=== PATIENT | female | born 1975 | race Asian ===

== ENCOUNTER → 2021-12-14 | Outpatient (CLI) | payer OTHER ==
[2021-12-15 04:06] LABS: RUBEOLA (MEASLES) IGG >300.0 AU/mL (Immune >16.4)
[2021-12-15 10:07] LABS: RUBELLA AB IGG-REFLAB 0.93 index (Immune >0.99)
== END | disposition home or self-care (01) ==
LOC: LABMN 08:51
PROVIDERS: ATTEND Internal Medicine
DX: Z02.1 Encounter for pre-employment examination (principal)
CPT/HCPCS: 86706; 86735; 86762; 86765; 86787

== ENCOUNTER 2022-04-11 10:40 | Emergency (ER) | payer OTHER ==
[~2022-04-11] VITALS: Ht 162.6 cm; Wt 85.9 kg
[2022-04-11 11:06] VITALS: BP 119/76
[2022-04-11] MEDS ORDERED: IBUP-1492 PO (11:25)
[2022-04-11] MEDS ORDERED: CEPH-558 PO (11:25)
[2022-04-11] MEDS ORDERED: IBUPROFEN 600 MG TABLET PO ONE (11:30)
[2022-04-11] MEDS ORDERED: SILVER SULFADIAZINE 1% 25 GM CREAM TP ONE (11:30)
== END 2022-04-11 12:08 | disposition home or self-care (01) ==
LOC: EMS 10:43
DX: T25.221A Burn of second degree of right foot, initial encounter (principal); T31.0 Burns involving less than 10% of body surface; Z90.12 Acquired absence of left breast and nipple; Z91.040 Latex allergy status
CPT/HCPCS: 16020; 99283

== ENCOUNTER 2025-01-03 11:10 | Emergency (ER) | payer OTHER, BC ==
[~2025-01-03] VITALS: Ht 165.1 cm; Wt 81.8 kg
[~2025-01-03 11:10] MED LIST: CEPH-558 PO; IBUP-1492 PO
[2025-01-03] MEDS ORDERED: LETR2.5 PO (11:28)
[2025-01-03] MEDS ORDERED: CARV3 PO (11:28)
[2025-01-03] MEDS ORDERED: ATOR10TA PO (11:28)
[2025-01-03] MEDS: IBUPROFEN 600 MG TABLET PO ONE (12:34)
[2025-01-03] MEDS: ACETAMINOPHEN 325 MG TABLET PO ONE (12:34)
[2025-01-03 13:26] VITALS: BP 113/74; PULSE 92; RESP 18; TEMP 98.1; O2SAT 99
== END 2025-01-03 14:12 | disposition home or self-care (01) ==
LOC: EMS 11:19
DX: S93.401A Sprain of unspecified ligament of right ankle, initial encounter (principal); E78.00 Pure hypercholesterolemia, unspecified; Z79.811 Long term (current) use of aromatase inhibitors; Z85.3 Personal history of malignant neoplasm of breast; Z90.12 Acquired absence of left breast and nipple; Z91.040 Latex allergy status; Z79.899 Other long term (current) drug therapy; X50.1XXA Overexertion from prolonged static or awkward postures, initial encounter; Y93.89 Activity, other specified; Y92.89 Other specified places as the place of occurrence of the external cause; Y99.8 Other external cause status
CPT/HCPCS: 99283